=== PATIENT | male | born 1950 | race Caucasian/White ===

== ENCOUNTER → 2017-02-12 | Outpatient (CLI) | payer OTHER | END | disposition home or self-care (01) | LOC: LAB 16:40 | PROVIDERS: ATTEND Internal Medicine | DX: N41.9 Inflammatory disease of prostate, unspecified (principal) | CPT/HCPCS: 87086 ==

== ENCOUNTER → 2017-05-11 | Outpatient (CLI) | payer OTHER ==
[~2017-05-11] MED LIST: ALLO300T2 PO; ASCO500T11 PO; ASPI81TA27 PO; ATOR20TA PO; CALC500T30 PO; CANA100T PO; CARV12.544 PO; CLON05T PO; CYA100I PO; INSLISPI SC; LACTCAP35 OR; LOSA25TA9 PO; METF-370 PO; SERT-160 PO; SITA100T7 PO; TRAZ50TA2 PO; WARF7.5T7 PO; ZALE10CA44 PO; [UNRECOGNIZED DRUG - CODE] EACHEYE
[2017-05-11 16:22] LABS: Basophils # (auto) 0.1 uL; Basophils % (auto) 1.1 % (0.0-2.0); Eosinophils # (auto) 0.3 uL; Eosinophils % (auto) 5.1 % (0.0-7.0); Hematocrit 47.1 % (41.0-53.0); Hemoglobin 15.6 g/dL (13.5-17.5); Lymphocytes # (auto) 0.8 uL; Lymphocytes % (auto) 11.7 % (10.0-50.0); Mean Corpuscular Hemoglobin 31.1 pg (28.0-32.0); Mean Corpuscular Hgb Conc. 33.1 g/dL (32.0-36.0); Monocytes # (auto) 0.7 uL; Monocytes % (auto) 10.3 % (0.0-12.0); Neutrophils # (auto) 4.8 uL; Neutrophils % (auto) 71.8 % (37.0-80.0); Nucleated Red Blood Cells % 0.1 %; Platelet Count (auto) 226 10^3/uL (140-450); Red Blood Cells 5.01 10^6/uL (4.5-5.90); Red Cell Distribution Width 17.4 % (11.8-14.3); White Blood Cell 6.7 10^3/uL (4.4-10.8)
[2017-05-11 16:35] LABS: Albumin 3.9 g/dL (3.4-5.0); BUN/Creatinine Ratio 22.7; Calcium 9.5 mg/dL (8.5-10.1); Potassium 4.1 mmol/L (3.5-5.1)
[2017-05-11 16:38] LABS: Bilirubin, Total 0.3 mg/dL (0.2-1.0); Total Protein 8.2 g/dL (6.4-8.2)
[2017-05-11 16:50] LABS: INR 2.36 (0.9-1.15); Partial Thromboplastin Time 41.8 sec (22.64-33.71)
[2017-05-11 16:58] LABS: Free T4 (Free Thyroxine) 0.97 ng/dL (0.89-1.76)
== END | disposition home or self-care (01) ==
LOC: LAB 16:00
PROVIDERS: ATTEND Internal Medicine
DX: I10 Essential (primary) hypertension (principal); E11.9 Type 2 diabetes mellitus without complications
CPT/HCPCS: 36415; 80053; 82043; 82607; 83036; 84439; 84443; 85025; 85610; 85652; 85730

== ENCOUNTER → 2017-06-29 | Outpatient (CLI) | payer OTHER ==
[2017-06-29 11:34] LABS: Urine WBC None Seen /hpf (0 - 3)
[2017-06-29 11:40] LABS: Basophils # (auto) 0.1 uL; Eosinophils # (auto) 0.4 uL; Eosinophils % (auto) 5.7 % (0.0-7.0); Hematocrit 49.2 % (41.0-53.0); Hemoglobin 16.1 g/dL (13.5-17.5); Lymphocytes # (auto) 0.8 uL; Lymphocytes % (auto) 11.3 % (10.0-50.0); Mean Corpuscular Hemoglobin 30.8 pg (28.0-32.0); Mean Corpuscular Hgb Conc. 32.7 g/dL (32.0-36.0); Mean Corpuscular Volume 94.3 fL (80.0-100.0); Monocytes # (auto) 0.6 uL; Monocytes % (auto) 9.7 % (0.0-12.0); Neutrophils # (auto) 4.8 uL; Neutrophils % (auto) 72.3 % (37.0-80.0); Nucleated Red Blood Cells % 0.3 %; Platelet Count (auto) 187 10^3/uL (140-450); Red Blood Cells 5.22 10^6/uL (4.5-5.90); Red Cell Distribution Width 16.6 % (11.8-14.3); White Blood Cell 6.6 10^3/uL (4.4-10.8)
[2017-06-29 11:56] LABS: INR 2.6 (0.9-1.15); Partial Thromboplastin Time 43.6 sec (22.64-33.71); Prothrombin Time 28.6 sec (9.37-12.3)
[2017-06-29 12:01] LABS: BUN/Creatinine Ratio 18.2; Calcium 9.5 mg/dL (8.5-10.1); Potassium 4.8 mmol/L (3.5-5.1)
[2017-06-29 12:45] LABS: Urine Bacteria NONE SEEN /hpf (None Seen); Urine Blood Negative /uL (Negative); Urine Specific Gravity 1.023 (1.001-1.035)
== END | disposition home or self-care (01) ==
LOC: LAB 10:45
PROVIDERS: ATTEND Urology
DX: I12.9 Hypertensive chronic kidney disease with stage 1 through stage 4 chronic kidney disease, or unspecified chronic kidney disease (principal); E11.22 Type 2 diabetes mellitus with diabetic chronic kidney disease; N18.4 Chronic kidney disease, stage 4 (severe); E78.5 Hyperlipidemia, unspecified; Z79.899 Other long term (current) drug therapy
CPT/HCPCS: 36415; 80048; 81001; 85025; 85610; 85730; 87086

== ENCOUNTER → 2017-12-14 | Outpatient (CLI) | payer OTHER ==
[2017-12-14 09:57] LABS: Basophils # (auto) 0 uL; Basophils % (auto) 0.7 % (0.0-2.0); Eosinophils # (auto) 0.3 uL; Eosinophils % (auto) 5.8 % (0.0-7.0); Hematocrit 48.4 % (41.0-53.0); Lymphocytes # (auto) 0.8 uL; Mean Corpuscular Hemoglobin 31.3 pg (28.0-32.0); Mean Corpuscular Volume 94.9 fL (80.0-100.0); Monocytes # (auto) 0.5 uL; Monocytes % (auto) 8.8 % (0.0-12.0); Neutrophils # (auto) 3.7 uL; Neutrophils % (auto) 69.7 % (37.0-80.0); Nucleated Red Blood Cells % 0.1 %; Platelet Count (auto) 177 10^3/uL (140-450); Red Blood Cells 5.11 10^6/uL (4.5-5.90); Red Cell Distribution Width 16.7 % (11.8-14.3); White Blood Cell 5.3 10^3/uL (4.4-10.8)
[2017-12-14 10:19] LABS: Albumin 3.7 g/dL (3.4-5.0); BUN/Creatinine Ratio 20.4; Bilirubin, Total 0.3 mg/dL (0.2-1.0); Calcium 9.1 mg/dL (8.5-10.1); Potassium 4.8 mmol/L (3.5-5.1); Total Protein 7.8 g/dL (6.4-8.2)
== END | disposition home or self-care (01) ==
LOC: LAB 09:14
PROVIDERS: ATTEND Internal Medicine
DX: E11.9 Type 2 diabetes mellitus without complications (principal); E78.00 Pure hypercholesterolemia, unspecified
CPT/HCPCS: 36415; 80053; 80061; 83036; 84439; 84443; 85025; 85652

== ENCOUNTER → 2018-06-20 | Outpatient (CLI) | payer OTHER ==
[~2018-06-20] MED LIST changes: +LOSA25TA40 PO; -LOSA25TA9 PO
[2018-06-20 09:20] LABS: Basophils # (auto) 0 uL; Basophils % (auto) 0.7 % (0.0-2.0); Eosinophils # (auto) 0.4 uL; Hematocrit 45.1 % (41.0-53.0); Hemoglobin 15.2 g/dL (13.5-17.5); Lymphocytes # (auto) 1.1 uL; Lymphocytes % (auto) 15.1 % (10.0-50.0); Mean Corpuscular Hemoglobin 32.1 pg (28.0-32.0); Mean Corpuscular Hgb Conc. 33.6 g/dL (32.0-36.0); Mean Corpuscular Volume 95.6 fL (80.0-100.0); Monocytes # (auto) 0.7 uL; Neutrophils # (auto) 4.9 uL; Neutrophils % (auto) 68.2 % (37.0-80.0); Platelet Count (auto) 210 10^3/uL (140-450); Red Blood Cells 4.72 10^6/uL (4.5-5.90); Red Cell Distribution Width 14.9 % (11.8-14.3); White Blood Cell 7.2 10^3/uL (4.4-10.8)
[2018-06-20 09:25] LABS: Potassium 4.6 mmol/L (3.5-5.1)
[2018-06-20 09:34] LABS: Albumin 3.7 g/dL (3.4-5.0); BUN/Creatinine Ratio 23.7; Bilirubin, Total 0.3 mg/dL (0.2-1.0); Total Protein 7.7 g/dL (6.4-8.2)
== END | disposition home or self-care (01) ==
LOC: LAB 08:40
PROVIDERS: ATTEND Internal Medicine
DX: E11.9 Type 2 diabetes mellitus without complications (principal)
CPT/HCPCS: 36415; 80053; 83036; 85025

== ENCOUNTER → 2018-09-25 | Outpatient (CLI) | payer OTHER, MEDICARE ==
[2018-09-25 13:40] LABS: Basophils # (auto) 0.1 uL; Basophils % (auto) 0.7 % (0.0-2.0); Eosinophils # (auto) 0.5 uL; Eosinophils % (auto) 6.3 % (0.0-7.0); Hematocrit 47.8 % (41.0-53.0); Hemoglobin 15.7 g/dL (13.5-17.5); Lymphocytes # (auto) 1.1 uL; Lymphocytes % (auto) 14.1 % (10.0-50.0); Mean Corpuscular Hgb Conc. 32.9 g/dL (32.0-36.0); Mean Corpuscular Volume 94.2 fL (80.0-100.0); Monocytes # (auto) 0.7 uL; Monocytes % (auto) 9.5 % (0.0-12.0); Neutrophils # (auto) 5.3 uL; Neutrophils % (auto) 69.4 % (37.0-80.0); Nucleated Red Blood Cells % 0.7 %; Platelet Count (auto) 214 10^3/uL (140-450); Red Blood Cells 5.07 10^6/uL (4.5-5.90); White Blood Cell 7.7 10^3/uL (4.4-10.8)
[2018-09-25 13:50] LABS: INR 1.69 (0.9-1.15); Prothrombin Time 17.8 sec (9.06-12.60)
[2018-09-25 14:01] LABS: Albumin 3.8 g/dL (3.4-5.0); BUN/Creatinine Ratio 24.2; Calcium 9.6 mg/dL (8.5-10.1); Potassium 5.1 mmol/L (3.5-5.1); Uric Acid 3.5 mg/dL (3.5-7.2)
[2018-09-25 14:04] LABS: Bilirubin, Total 0.4 mg/dL (0.2-1.0); Total Protein 8.1 g/dL (6.4-8.2)
[2018-09-25 15:48] LABS: Urine Bacteria NONE SEEN /hpf (None Seen); Urine Blood Negative /uL (Negative); Urine Mucus FEW (None Seen); Urine WBC <1 /hpf (0 - 3)
== END | disposition home or self-care (01) ==
LOC: LAB 12:46
PROVIDERS: ATTEND Internal Medicine
DX: Z01.818 Encounter for other preprocedural examination (principal); I12.9 Hypertensive chronic kidney disease with stage 1 through stage 4 chronic kidney disease, or unspecified chronic kidney disease; E11.22 Type 2 diabetes mellitus with diabetic chronic kidney disease; N18.4 Chronic kidney disease, stage 4 (severe)
CPT/HCPCS: 36415; 80053; 81001; 83036; 84550; 85025; 85610

== ENCOUNTER → 2018-10-28 | Outpatient (CLI) | payer MEDICARE, OTHER | END | disposition home or self-care (01) | LOC: XY 08:13 | PROVIDERS: ATTEND Internal Medicine | DX: R93.89 Abnormal findings on diagnostic imaging of other specified body structures (principal); Z85.118 Personal history of other malignant neoplasm of bronchus and lung | CPT/HCPCS: 78306; A9503 ==

== ENCOUNTER → 2019-01-20 | Outpatient (CLI) | payer OTHER, MEDICARE ==
[~2019-01-20] MED LIST changes: +ASPI-404 PO; -ASPI81TA27 PO; +CLON0.5T11 PO; -CLON05T PO; +LOSA25TA38 PO; -LOSA25TA40 PO
[2019-01-20 10:11] LABS: Urine WBC None Seen /hpf (0 - 3)
[2019-01-20 10:50] LABS: Basophils # (auto) 0.1 uL; Basophils % (auto) 0.8 % (0.0-2.0); Eosinophils # (auto) 0.4 uL; Eosinophils % (auto) 6.2 % (0.0-7.0); Hematocrit 44.1 % (41.0-53.0); Hemoglobin 14.6 g/dL (13.5-17.5); Lymphocytes # (auto) 0.8 uL; Lymphocytes % (auto) 12.8 % (10.0-50.0); Mean Corpuscular Hemoglobin 30.9 pg (28.0-32.0); Mean Corpuscular Volume 93.5 fL (80.0-100.0); Monocytes # (auto) 0.6 uL; Monocytes % (auto) 8.4 % (0.0-12.0); Neutrophils # (auto) 4.8 uL; Neutrophils % (auto) 71.8 % (37.0-80.0); Platelet Count (auto) 208 10^3/uL (140-450); Red Blood Cells 4.72 10^6/uL (4.5-5.90); Red Cell Distribution Width 15.7 % (11.8-14.3); White Blood Cell 6.6 10^3/uL (4.4-10.8)
[2019-01-20 11:02] LABS: Urine Bacteria NONE SEEN /hpf (None Seen); Urine Blood Negative /uL (Negative); Urine Specific Gravity 1.019 (1.001-1.035)
[2019-01-20 11:16] LABS: Potassium 4.6 mmol/L (3.5-5.1)
[2019-01-20 11:22] LABS: Free T4 (Free Thyroxine) 0.98 ng/dL (0.89-1.76)
[2019-01-20 11:26] LABS: Albumin 3.6 g/dL (3.4-5.0); BUN/Creatinine Ratio 20.2; Bilirubin, Total 0.4 mg/dL (0.2-1.0); Calcium 9.4 mg/dL (8.5-10.1); Total Protein 7.6 g/dL (6.4-8.2)
== END | disposition home or self-care (01) ==
LOC: LAB 09:48
PROVIDERS: ATTEND Internal Medicine
DX: E11.9 Type 2 diabetes mellitus without complications (principal); I10 Essential (primary) hypertension
CPT/HCPCS: 36415; 80053; 80061; 81001; 82043; 82607; 84439; 84443; 85025; 85652

== ENCOUNTER → 2019-02-17 | Outpatient (CLI) | payer MEDICARE, OTHER | END | disposition home or self-care (01) | LOC: LAB 10:53 | PROVIDERS: ATTEND Internal Medicine | DX: E11.9 Type 2 diabetes mellitus without complications (principal) | CPT/HCPCS: 36415; 83036 ==

== ENCOUNTER → 2019-05-12 | Outpatient (CLI) | payer OTHER ==
[~2019-05-12] MED LIST changes: -CLON0.5T11 PO; +CLON0.5T3 PO
== END | disposition home or self-care (01) ==
LOC: LAB 10:25
DX: R97.20 Elevated prostate specific antigen [PSA] (principal)
CPT/HCPCS: 84154

== ENCOUNTER → 2019-06-18 | Outpatient (CLI) | payer OTHER ==
[2019-06-18 10:39] LABS: Albumin 3.5 g/dL (3.4-5.0); Calcium 9.3 mg/dL (8.5-10.1); Potassium 5.1 mmol/L (3.5-5.1)
[2019-06-18 10:42] LABS: BUN/Creatinine Ratio 20.4; Bilirubin, Total 0.3 mg/dL (0.2-1.0); Total Protein 7.5 g/dL (6.4-8.2)
== END | disposition home or self-care (01) ==
LOC: LAB 09:35
PROVIDERS: ATTEND Internal Medicine
DX: E11.9 Type 2 diabetes mellitus without complications (principal); N52.9 Male erectile dysfunction, unspecified
CPT/HCPCS: 36415; 80053; 83036; 84146; 84403

== ENCOUNTER → 2019-10-16 | Outpatient (CLI) | payer OTHER ==
[2019-10-16 09:48] LABS: Basophils # (auto) 0.1 10 ^3/uL (0-0.2); Basophils % (auto) 0.9 % (0.0-2.0); Eosinophils # (auto) 0.3 10 ^3/uL (0-0.8); Eosinophils % (auto) 5.1 % (0.0-7.0); Hematocrit 44.3 % (41.0-53.0); Hemoglobin 14.3 g/dL (13.5-17.5); Lymphocytes # (auto) 1.1 10 ^3/uL (0.4-5.4); Lymphocytes % (auto) 16.6 % (10.0-50.0); Mean Corpuscular Hemoglobin 30.4 pg (28.0-32.0); Mean Corpuscular Hgb Conc. 32.3 g/dL (32.0-36.0); Mean Corpuscular Volume 93.9 fL (80.0-100.0); Monocytes # (auto) 0.7 10 ^3/uL (0-1.3); Monocytes % (auto) 10.7 % (0.0-12.0); Neutrophils # (auto) 4.4 10 ^3/uL (1.6-8.6); Neutrophils % (auto) 66.7 % (37.0-80.0); Platelet Count (auto) 226 10^3/uL (140-450); Red Blood Cells 4.72 10^6/uL (4.5-5.90); Red Cell Distribution Width 16.5 % (11.8-14.3); White Blood Cell 6.6 10^3/uL (4.4-10.8)
[2019-10-16 10:15] LABS: Potassium 4.6 mmol/L (3.5-5.1)
[2019-10-16 10:20] LABS: Albumin 3.5 g/dL (3.4-5.0); Calcium 9.1 mg/dL (8.5-10.1)
[2019-10-16 10:24] LABS: Bilirubin, Total 0.3 mg/dL (0.2-1.0); Total Protein 7.3 g/dL (6.4-8.2)
[2019-10-16 20:13] LABS: Uric Acid 3.5 mg/dL (3.5-7.2)
== END | disposition home or self-care (01) ==
LOC: LAB 09:18
PROVIDERS: ATTEND Internal Medicine
DX: E11.40 Type 2 diabetes mellitus with diabetic neuropathy, unspecified (principal); N40.0 Benign prostatic hyperplasia without lower urinary tract symptoms
CPT/HCPCS: 36415; 80053; 83036; 84550; 85025

== ENCOUNTER → 2020-01-12 | Outpatient (CLI) | payer OTHER ==
[~2020-01-12] MED LIST changes: -ASPI-404 PO; +ASPI-543 PO
[2020-01-12 10:24] LABS: Urine Bacteria FEW /hpf (None Seen); Urine Blood Negative /uL (Negative); Urine Mucus FEW (None Seen); Urine WBC <1 /hpf (0 - 3)
[2020-01-12 10:26] LABS: Basophils # (auto) 0.1 10 ^3/uL (0-0.2); Basophils % (auto) 0.9 % (0.0-2.0); Eosinophils # (auto) 0.3 10 ^3/uL (0-0.8); Eosinophils % (auto) 4.6 % (0.0-7.0); Hematocrit 41.4 % (41.0-53.0); Hemoglobin 13.6 g/dL (13.5-17.5); Lymphocytes # (auto) 0.8 10 ^3/uL (0.4-5.4); Mean Corpuscular Hemoglobin 30.8 pg (28.0-32.0); Mean Corpuscular Hgb Conc. 32.7 g/dL (32.0-36.0); Mean Corpuscular Volume 94.2 fL (80.0-100.0); Monocytes # (auto) 0.5 10 ^3/uL (0-1.3); Neutrophils # (auto) 4.1 10 ^3/uL (1.6-8.6); Neutrophils % (auto) 72.5 % (37.0-80.0); Nucleated Red Blood Cells % 0.1 %; Platelet Count (auto) 210 10^3/uL (140-450); Red Cell Distribution Width 15.6 % (11.8-14.3); White Blood Cell 5.7 10^3/uL (4.4-10.8)
[2020-01-12 10:43] LABS: Potassium 4.7 mmol/L (3.5-5.1)
[2020-01-12 10:53] LABS: Albumin 3.6 g/dL (3.4-5.0); BUN/Creatinine Ratio 17.4; Bilirubin, Total 0.4 mg/dL (0.2-1.0); Calcium 9.3 mg/dL (8.5-10.1); Total Protein 7.5 g/dL (6.4-8.2); Uric Acid 3.2 mg/dL (3.5-7.2)
[2020-01-12 15:35] LABS: Free T4 (Free Thyroxine) 1.02 ng/dL (0.89-1.76)
== END | disposition home or self-care (01) ==
LOC: LAB 09:42
PROVIDERS: ATTEND Internal Medicine
DX: E11.21 Type 2 diabetes mellitus with diabetic nephropathy (principal); E11.22 Type 2 diabetes mellitus with diabetic chronic kidney disease; N18.3 Chronic kidney disease, stage 3 (moderate); I26.99 Other pulmonary embolism without acute cor pulmonale; N40.0 Benign prostatic hyperplasia without lower urinary tract symptoms
CPT/HCPCS: 36415; 80053; 80061; 81001; 82043; 82607; 83036; 83970; 84153; 84439; 84443; 84550; 85025; 85652

== ENCOUNTER → 2020-03-08 | Outpatient (CLI) | payer OTHER | END | disposition home or self-care (01) | LOC: LAB 15:18 | PROVIDERS: ATTEND Internal Medicine | DX: Z12.11 Encounter for screening for malignant neoplasm of colon (principal) | CPT/HCPCS: 82274 ==

== ENCOUNTER → 2020-03-15 | Outpatient (CLI) | payer OTHER | END | disposition home or self-care (01) | LOC: XY 15:01 | PROVIDERS: ATTEND Internal Medicine | DX: L97.909 Non-pressure chronic ulcer of unspecified part of unspecified lower leg with unspecified severity (principal) | CPT/HCPCS: 93925 ==

== ENCOUNTER → 2020-07-21 | Day surgery (SDC) | payer OTHER ==
[2020-07-16 14:58] LABS: Basophils # (auto) 0.1 10 ^3/uL (0-0.2); Eosinophils # (auto) 0.4 10 ^3/uL (0-0.8); Eosinophils % (auto) 5.7 % (0.0-7.0); Hematocrit 43.2 % (41.0-53.0); Hemoglobin 14.4 g/dL (13.5-17.5); Lymphocytes % (auto) 15.4 % (10.0-50.0); Mean Corpuscular Hemoglobin 31.8 pg (28.0-32.0); Mean Corpuscular Hgb Conc. 33.3 g/dL (32.0-36.0); Mean Corpuscular Volume 95.5 fL (80.0-100.0); Monocytes # (auto) 0.7 10 ^3/uL (0-1.3); Neutrophils # (auto) 4.6 10 ^3/uL (1.6-8.6); Neutrophils % (auto) 67.9 % (37.0-80.0); Nucleated Red Blood Cells % 0.1 %; Platelet Count (auto) 214 10^3/uL (140-450); Red Blood Cells 4.53 10^6/uL (4.5-5.90); Red Cell Distribution Width 15.3 % (11.8-14.3); White Blood Cell 6.7 10^3/uL (4.4-10.8)
[2020-07-16 15:27] LABS: INR 2.22 (0.9-1.15); Partial Thromboplastin Time 38.9 sec (23.0-31.2)
[~2020-07-21] VITALS: Ht 177.8 cm; Wt 104.3 kg
[~2020-07-21] MED LIST changes: -ALLO300T2 PO; -ASPI-543 PO; -ATOR20TA PO; +CALC-440 PO; -CALC500T30 PO; -CANA100T PO; +CHOL1CAP PO; +CILO50TA PO; -CYA100I PO; +FIBETAB PO; +GLIP10TA9 PO; +INSLANTI SC; +MULT-223 PO; -TRAZ50TA2 PO; +WARF7.5T20 PO; -WARF7.5T7 PO; -[UNRECOGNIZED DRUG - CODE] EACHEYE; +[UNRECOGNIZED DRUG - CODE] LEFTEYE
[2020-07-21] MEDS: MIDAZOLAM HCL 5 MG/ML-1ML VIAL ONE ×4 (14:07→14:27)
[2020-07-21] MEDS: fentaNYL CITRATE 100 MCG/2 ML VL ONE ×3 (14:07→14:15)
[2020-07-21] MEDS: diphenhdrAMINE HCL 50 MG/1 ML VL ONE ×2 (14:07→14:27)
[2020-07-21 15:10] VITALS: BP 154/84
== END | disposition home or self-care (01) ==
LOC: GI 12:13
PROVIDERS: ATTEND Internal Medicine Gastroenterology
DX: R19.5 Other fecal abnormalities (principal); D12.3 Benign neoplasm of transverse colon; D12.4 Benign neoplasm of descending colon; K63.89 Other specified diseases of intestine; I10 Essential (primary) hypertension; E11.36 Type 2 diabetes mellitus with diabetic cataract; I26.99 Other pulmonary embolism without acute cor pulmonale; E66.9 Obesity, unspecified; M79.89 Other specified soft tissue disorders; F32.9 Major depressive disorder, single episode, unspecified; F41.9 Anxiety disorder, unspecified; F99 Mental disorder, not otherwise specified; Z80.42 Family history of malignant neoplasm of prostate; Z86.010 Personal history of colon polyps; Z20.822 Contact with and (suspected) exposure to COVID-19; Z98.890 Other specified postprocedural states; Z86.718 Personal history of other venous thrombosis and embolism; Z68.33 Body mass index [BMI] 33.0-33.9, adult
CPT/HCPCS: 36415; 45385; 82962; 85025; 85610; 85730; 88305; J1200; J2250; J3010; J7030; U0003; 99153; G0500

== ENCOUNTER → 2020-10-08 | Outpatient (CLI) | payer OTHER ==
[2020-10-08 08:39] LABS: BUN/Creatinine Ratio 22.9; Calcium 9.4 mg/dL (8.5-10.1); Potassium 4.3 mmol/L (3.5-5.1); Uric Acid 3.3 mg/dL (3.5-7.2)
== END | disposition home or self-care (01) ==
LOC: LAB 08:07
PROVIDERS: ATTEND Internal Medicine
DX: E11.9 Type 2 diabetes mellitus without complications (principal)
CPT/HCPCS: 36415; 80048; 83036; 84550

== ENCOUNTER → 2021-02-16 | Outpatient (CLI) | payer OTHER | END | disposition home or self-care (01) | LOC: LAB 09:49 | PROVIDERS: ATTEND Internal Medicine | DX: E11.9 Type 2 diabetes mellitus without complications (principal); I10 Essential (primary) hypertension | CPT/HCPCS: 36415; 83036; 84153; 84478 ==

== ENCOUNTER → 2021-03-02 | Day surgery (SDC) | payer OTHER ==
[2021-02-25 13:52] LABS: Basophils # (auto) 0.1 10 ^3/uL (0-0.2); Basophils % (auto) 0.9 % (0.0-2.0); Eosinophils # (auto) 0.4 10 ^3/uL (0-0.8); Eosinophils % (auto) 7.1 % (0.0-7.0); Hematocrit 43.8 % (41.0-53.0); Hemoglobin 14.1 g/dL (13.5-17.5); Lymphocytes # (auto) 0.8 10 ^3/uL (0.4-5.4); Lymphocytes % (auto) 13.1 % (10.0-50.0); Mean Corpuscular Hemoglobin 30.9 pg (28.0-32.0); Mean Corpuscular Hgb Conc. 32.1 g/dL (32.0-36.0); Mean Corpuscular Volume 96.1 fL (80.0-100.0); Monocytes # (auto) 0.6 10 ^3/uL (0-1.3); Monocytes % (auto) 10.4 % (0.0-12.0); Neutrophils # (auto) 4.1 10 ^3/uL (1.6-8.6); Neutrophils % (auto) 68.5 % (37.0-80.0); Nucleated Red Blood Cells % 0.1 %; Red Blood Cells 4.56 10^6/uL (4.5-5.90); Red Cell Distribution Width 15.9 % (11.8-14.3)
[2021-02-25 14:43] LABS: Albumin 3.7 g/dL (3.4-5.0); Calcium 9.1 mg/dL (8.5-10.1); Potassium 4.6 mmol/L (3.5-5.1)
[2021-02-25 14:48] LABS: Bilirubin, Total 0.3 mg/dL (0.2-1.0); Total Protein 7.8 g/dL (6.4-8.2)
[~2021-03-02] VITALS: Ht 175.3 cm; Wt 104.3 kg
[~2021-03-02] MED LIST changes: -CHOL1CAP PO; -INSLANTI SC; -[UNRECOGNIZED DRUG - CODE] LEFTEYE
[2021-03-02 14:34] LABS: INR 1.22 (0.9-1.15); Partial Thromboplastin Time 29.4 sec (23.6-33.0)
[2021-03-02] MEDS: MIDAZOLAM HCL 5 MG/ML-1ML VIAL ONE ×3 (14:50→15:09)
[2021-03-02] MEDS: diphenhdrAMINE HCL 50 MG/1 ML VL ONE ×2 (14:50→14:54)
[2021-03-02] MEDS: fentaNYL CITRATE 100 MCG/2 ML VL ONE ×2 (14:50→14:54)
[2021-03-02 16:05] VITALS: BP 147/78
== END | disposition home or self-care (01) ==
LOC: GI 13:07
PROVIDERS: ATTEND Internal Medicine Gastroenterology
DX: R19.4 Change in bowel habit (principal); D12.3 Benign neoplasm of transverse colon; K63.89 Other specified diseases of intestine; F32.9 Major depressive disorder, single episode, unspecified; I10 Essential (primary) hypertension; E11.40 Type 2 diabetes mellitus with diabetic neuropathy, unspecified; I26.99 Other pulmonary embolism without acute cor pulmonale; F99 Mental disorder, not otherwise specified; F41.9 Anxiety disorder, unspecified; Z80.42 Family history of malignant neoplasm of prostate; Z98.890 Other specified postprocedural states; Z86.73 Personal history of transient ischemic attack (TIA), and cerebral infarction without residual deficits; Z79.899 Other long term (current) drug therapy; Z68.34 Body mass index [BMI] 34.0-34.9, adult; Z20.822 Contact with and (suspected) exposure to COVID-19
CPT/HCPCS: 36415; 45385; 80053; 82962; 85025; 85610; 85730; J1200; J2250; J3010; J7030; U0003; 99153; G0500

== ENCOUNTER → 2021-06-03 | Outpatient (CLI) | payer OTHER ==
[2021-06-03 11:50] LABS: Calcium 9.4 mg/dL (8.5-10.1); Potassium 4.5 mmol/L (3.5-5.1)
[2021-06-03 11:51] LABS: BUN/Creatinine Ratio 21.4
== END | disposition home or self-care (01) ==
LOC: LAB 10:43
PROVIDERS: ATTEND Specialist
DX: N40.1 Benign prostatic hyperplasia with lower urinary tract symptoms (principal)
CPT/HCPCS: 36415; 80048; 84154

== ENCOUNTER → 2021-11-01 | Outpatient (CLI) | payer OTHER ==
[2021-11-01 10:14] LABS: Potassium 4.5 mmol/L (3.5-5.1)
[2021-11-01 10:22] LABS: BUN/Creatinine Ratio 23.6; Calcium 9.1 mg/dL (8.5-10.1)
== END | disposition home or self-care (01) ==
LOC: LAB 09:27
PROVIDERS: ATTEND Specialist
DX: I10 Essential (primary) hypertension (principal)
CPT/HCPCS: 36415; 80048

== ENCOUNTER → 2021-11-10 | Outpatient (CLI) | payer OTHER ==
[2021-11-10 09:03] LABS: Basophils # (auto) 0 10 ^3/uL (0-0.2); Basophils % (auto) 0.7 % (0.0-2.0); Eosinophils # (auto) 0.4 10 ^3/uL (0-0.8); Eosinophils % (auto) 5.5 % (0.0-7.0); Hematocrit 40.3 % (41.0-53.0); Lymphocytes # (auto) 0.8 10 ^3/uL (0.4-5.4); Lymphocytes % (auto) 12.1 % (10.0-50.0); Mean Corpuscular Hemoglobin 30.2 pg (28.0-32.0); Mean Corpuscular Hgb Conc. 32.1 g/dL (32.0-36.0); Monocytes # (auto) 0.6 10 ^3/uL (0-1.3); Monocytes % (auto) 9.3 % (0.0-12.0); Neutrophils # (auto) 4.7 10 ^3/uL (1.6-8.6); Neutrophils % (auto) 72.4 % (37.0-80.0); Nucleated Red Blood Cells % 0.1 %; Red Blood Cells 4.29 10^6/uL (4.5-5.90); Red Cell Distribution Width 15.3 % (11.8-14.3); White Blood Cell 6.5 10^3/uL (4.4-10.8)
[2021-11-10 09:36] LABS: Albumin 3.5 g/dL (3.4-5.0); Calcium 9.1 mg/dL (8.5-10.1); Potassium 4.4 mmol/L (3.5-5.1)
[2021-11-10 09:43] LABS: BUN/Creatinine Ratio 18.8; Bilirubin, Direct 0.1 mg/dL (0-0.2); Bilirubin, Total 0.3 mg/dL (0.2-1.0); Total Protein 7.6 g/dL (6.4-8.2)
== END | disposition home or self-care (01) ==
LOC: LAB 08:47
PROVIDERS: ATTEND Specialist
DX: R94.5 Abnormal results of liver function studies (principal); D64.9 Anemia, unspecified; E78.5 Hyperlipidemia, unspecified; E11.8 Type 2 diabetes mellitus with unspecified complications; E03.9 Hypothyroidism, unspecified; I10 Essential (primary) hypertension
CPT/HCPCS: 36415; 80048; 80061; 80076; 83036; 84443; 85025

== ENCOUNTER → 2022-01-09 | Outpatient (CLI) | payer OTHER ==
[2022-01-09 16:43] LABS: Alanine Aminotransferase 31 U/L (16-61); Alkaline Phosphatase 66 U/L (45-117); Anion Gap 7 (5-15); Aspartate Aminotransferase 9 U/L (15-37); Blood Urea Nitrogen 40 mg/dL (7-18); Carbon Dioxide 25 mmol/L (21-32); Chloride 113 mmol/L (98-107); GFR African American 58 mL/min; GFR Non-African American 48 mL/min; Glucose 293 mg/dL (74-106); Potassium 5.1 mmol/L (3.5-5.1); Sodium 145 mmol/L (136-145)
[2022-01-09 16:44] LABS: Albumin 3.8 g/dL (3.4-5.0); Bilirubin, Direct < 0.1 mg/dL (0-0.2); Calcium 9.4 mg/dL (8.5-10.1)
[2022-01-09 16:45] LABS: Bilirubin, Total 0.2 mg/dL (0.2-1.0); Cholesterol 135 mg/dL (< 200); HDL Cholesterol 57 mg/dL (40-59); LDL Cholesterol 54 mg/dL (< 100); Triglycerides 156 mg/dL (< 150)
== END | disposition home or self-care (01) ==
LOC: LAB 09:21
PROVIDERS: ATTEND Specialist
DX: I10 Essential (primary) hypertension (principal); R94.5 Abnormal results of liver function studies; D64.9 Anemia, unspecified; E78.5 Hyperlipidemia, unspecified; E11.8 Type 2 diabetes mellitus with unspecified complications; E03.9 Hypothyroidism, unspecified
CPT/HCPCS: 36415; 80053; 80061; 80076; 83036; 84443

== ENCOUNTER 2022-02-06 14:04 | Emergency (ER) | payer OTHER ==
[~2022-02-06] VITALS: Ht 177.8 cm; Wt 102.6 kg
[2022-02-06] MEDS ORDERED: OMNIPAQUE ORAL SOLN 500ml 12mg/ml PO ONE (15:26)
[2022-02-06 16:03] LABS: Basophils # (auto) 0.1 10 ^3/uL (0-0.2); Basophils % (auto) 0.8 % (0.0-2.0); Eosinophils # (auto) 0.4 10 ^3/uL (0-0.8); Hematocrit 41.3 % (41.0-53.0); Hemoglobin 13.3 g/dL (13.5-17.5); Lymphocytes # (auto) 0.9 10 ^3/uL (0.4-5.4); Mean Corpuscular Hemoglobin 30.9 pg (28.0-32.0); Mean Corpuscular Hgb Conc. 32.3 g/dL (32.0-36.0); Mean Corpuscular Volume 95.8 fL (80.0-100.0); Monocytes # (auto) 0.6 10 ^3/uL (0-1.3); Monocytes % (auto) 9.7 % (0.0-12.0); Neutrophils # (auto) 4.6 10 ^3/uL (1.6-8.6); Neutrophils % (auto) 69.5 % (37.0-80.0); Nucleated Red Blood Cells % 0.1 %; Red Blood Cells 4.31 10^6/uL (4.5-5.90); White Blood Cell 6.6 10^3/uL (4.4-10.8)
[2022-02-06 16:24] LABS: Albumin 3.6 g/dL (3.4-5.0); BUN/Creatinine Ratio 21.3; Calcium 8.9 mg/dL (8.5-10.1); Potassium 4.5 mmol/L (3.5-5.1)
[2022-02-06 16:26] LABS: Lactic Acid w/Reflex 2.9 mmol/L (0.4-2.0)
[2022-02-06 16:27] LABS: Bilirubin, Total 0.2 mg/dL (0.2-1.0); Total Protein 7.5 g/dL (6.4-8.2)
[2022-02-06 19:20] VITALS: BP 156/84
== END 2022-02-06 19:24 | disposition home or self-care (01) ==
LOC: ER 14:04
DX: K42.9 Umbilical hernia without obstruction or gangrene (principal); I10 Essential (primary) hypertension; E11.9 Type 2 diabetes mellitus without complications; Z79.4 Long term (current) use of insulin; Z79.899 Other long term (current) drug therapy
CPT/HCPCS: 36415; 74176; 80053; 83605; 85025; 93005

== ENCOUNTER → 2022-07-24 | Outpatient (CLI) | payer OTHER ==
[2022-07-24 10:45] LABS: Basophils # (auto) 0.1 10 ^3/uL (0-0.2); Basophils % (auto) 1.2 % (0.0-2.0); Eosinophils # (auto) 0.3 10 ^3/uL (0-0.8); Eosinophils % (auto) 3.9 % (0.0-7.0); Hematocrit 33.6 % (41.0-53.0); Lymphocytes # (auto) 0.8 10 ^3/uL (0.4-5.4); Lymphocytes % (auto) 10.8 % (10.0-50.0); Mean Corpuscular Hemoglobin 31.4 pg (28.0-32.0); Mean Corpuscular Hgb Conc. 32.7 g/dL (32.0-36.0); Mean Corpuscular Volume 96.1 fL (80.0-100.0); Monocytes # (auto) 0.6 10 ^3/uL (0-1.3); Monocytes % (auto) 7.9 % (0.0-12.0); Neutrophils # (auto) 5.8 10 ^3/uL (1.6-8.6); Neutrophils % (auto) 76.2 % (37.0-80.0); Nucleated Red Blood Cells % 0.1 %; Red Cell Distribution Width 15.9 % (11.8-14.3); White Blood Cell 7.6 10^3/uL (4.4-10.8)
[2022-07-24 11:54] LABS: BUN/Creatinine Ratio 18.5 (10.0-20.0); Calcium 9.1 mg/dL (8.5-10.1); Potassium 4.7 mmol/L (3.5-5.1)
== END | disposition home or self-care (01) ==
LOC: LAB 10:24
PROVIDERS: ATTEND Internal Medicine
DX: I13.0 Hypertensive heart and chronic kidney disease with heart failure and stage 1 through stage 4 chronic kidney disease, or unspecified chronic kidney disease (principal); I50.9 Heart failure, unspecified; N18.31 Chronic kidney disease, stage 3a
CPT/HCPCS: 36415; 80048; 83880; 85025

== ENCOUNTER → 2022-08-15 | Outpatient (CLI) | payer OTHER | END | disposition home or self-care (01) | LOC: LAB 12:48 | PROVIDERS: ATTEND Internal Medicine | DX: N20.0 Calculus of kidney (principal) | CPT/HCPCS: 84300; 84560 ==

== ENCOUNTER → 2022-08-22 | Outpatient (CLI) | payer OTHER | END | disposition home or self-care (01) | LOC: LAB 10:26 | PROVIDERS: ATTEND Internal Medicine | DX: N20.0 Calculus of kidney (principal) | CPT/HCPCS: 82507 ==

== ENCOUNTER 2023-02-20 20:02 | Inpatient (IN) | payer OTHER ==
[~2023-02-20] VITALS: Ht 177.8 cm; Wt 101.6 kg
[~2023-02-20 20:02] MED LIST changes: +LOSA25TA15 PO; -LOSA25TA38 PO; +WARF-114 PO; -WARF7.5T20 PO
[2023-02-20 21:30] VITALS: BP 161/85; PULSE 83; RESP 13; TEMP 98.4; O2SAT 96
[2023-02-20 22:00] VITALS: BP_SYST 161; BP_SYST 173; BP_DIAS 101; BP_DIAS 85; PULSE 83; PULSE 85; RESP 12; RESP 13; TEMP 98.4; O2SAT 96; O2SAT 98
[2023-02-20] MEDS ORDERED: ONDANSETRON HCL 4 MG/2 ML VIAL IV PRN (22:45)
[2023-02-20] MEDS ORDERED: DOCUSATE SOD 100 MG CAP PO PRN (22:45)
[2023-02-20] MEDS ORDERED: NITROGLYCERIN 0.4 MG SL TAB SL PRN (22:45)
[2023-02-20] MEDS ORDERED: DEXTROSE (50%) 50ML SYRG IV PRN (22:45)
[2023-02-20] MEDS ORDERED: MORPHINE SULFATE INJ 2 MG/ml SYRG IV PRN (22:45)
[2023-02-20] MEDS ORDERED: ACETAMINOPHEN 325 MG TAB PO PRN (22:45)
[2023-02-20 23:00] VITALS: BP 146/70; PULSE 87; RESP 14; O2SAT 95
[2023-02-20] MEDS ORDERED: HEPARIN DRIP/D5W 100UNITS/ML 250 ML IV SCH (23:00)
[2023-02-20] MEDS ORDERED: ATOR20TA PO (23:02)
[2023-02-20] MEDS ORDERED: ALLO300T2 PO (23:02)
[2023-02-20] MEDS ORDERED: GABA-1308 PO (23:04)
[2023-02-20] MEDS ORDERED: LOSA50TA46 PO (23:11)
[2023-02-20] MEDS ORDERED: LEVEMIR SC (23:18)
[2023-02-20] MEDS ORDERED: CLOP75TA28 PO (23:18)
[2023-02-20] MEDS ORDERED: MULT-775 OR (23:18)
[2023-02-20] MEDS ORDERED: FURO1TAB33 PO (23:18)
[2023-02-20] MEDS ORDERED: WARF4TAB70 PO ×2 (23:18)
[2023-02-20] MEDS ORDERED: INSU100I28 SC (23:18)
[2023-02-20 23:25] LABS: Basophils # (auto) 0 10 ^3/uL (0-0.2); Basophils % (auto) 0.2 % (0.0-2.0); Eosinophils # (auto) 0 10 ^3/uL (0-0.8); Eosinophils % (auto) 0.1 % (0.0-7.0); Hematocrit 43.1 % (41.0-53.0); Lymphocytes # (auto) 0.4 10 ^3/uL (0.4-5.4); Lymphocytes % (auto) 5.3 % (10.0-50.0); Mean Corpuscular Hemoglobin 31.9 pg (28.0-32.0); Mean Corpuscular Hgb Conc. 32.5 g/dL (32.0-36.0); Mean Corpuscular Volume 98.2 fL (80.0-100.0); Monocytes # (auto) 0.1 10 ^3/uL (0-1.3); Monocytes % (auto) 1.8 % (0.0-12.0); Neutrophils # (auto) 7.3 10 ^3/uL (1.6-8.6); Neutrophils % (auto) 92.6 % (37.0-80.0); Nucleated Red Blood Cells % 0.1 %; Red Blood Cells 4.39 10^6/uL (4.5-5.90); Red Cell Distribution Width 17.2 % (11.8-14.3); White Blood Cell 7.9 10^3/uL (4.4-10.8)
[2023-02-20 23:55] VITALS: PULSE 87
[2023-02-21] VITALS (23 sets, daily range): BP systolic 112–158; BP diastolic 56–83; PULSE 63–88; RESP 10–20; TEMP 97.5–98.6; O2SAT 94–99
[2023-02-21 02:53] LABS: INR 1.14 (0.9-1.15); Prothrombin Time 11.9 sec (9.3-11.8)
[2023-02-21 03:52] LABS: Rapid Influenza A Negative (Negative); Rapid Influenza B Negative (Negative)
[2023-02-21 03:53] LABS: COVID19 ANTIGEN SOFIA FIA NEGATIVE (NEGATIVE)
[2023-02-21] MEDS: HEPARIN DRIP/D5W 100UNITS/ML 250 ML IV SCH ×2 (04:02→14:26)
[2023-02-21 05:00] LABS: Basophils # (auto) 0 10 ^3/uL (0-0.2); Basophils % (auto) 0.1 % (0.0-2.0); Eosinophils # (auto) 0 10 ^3/uL (0-0.8); Hematocrit 41.1 % (41.0-53.0); Lymphocytes # (auto) 0.6 10 ^3/uL (0.4-5.4); Lymphocytes % (auto) 5.3 % (10.0-50.0); Mean Corpuscular Hemoglobin 31.3 pg (28.0-32.0); Mean Corpuscular Hgb Conc. 31.7 g/dL (32.0-36.0); Mean Corpuscular Volume 98.6 fL (80.0-100.0); Monocytes # (auto) 0.6 10 ^3/uL (0-1.3); Neutrophils # (auto) 10.4 10 ^3/uL (1.6-8.6); Neutrophils % (auto) 89.6 % (37.0-80.0); Red Blood Cells 4.16 10^6/uL (4.5-5.90); Red Cell Distribution Width 17.4 % (11.8-14.3); White Blood Cell 11.6 10^3/uL (4.4-10.8)
[2023-02-21 05:42] LABS: Alanine Aminotransferase 23 U/L (7-40); Albumin 3.9 g/dL (3.2-4.8); Alkaline Phosphatase 103 U/L (46-116); Anion Gap 12 (5-15); Aspartate Aminotransferase < 8 U/L (13-40); Bilirubin, Total 0.5 mg/dL (0.2-1.0); Blood Urea Nitrogen 44 mg/dL (9-23); Calcium 8.8 mg/dL (8.7-10.4); Carbon Dioxide 19 mmol/L (20-30); Chloride 108 mmol/L (98-107); Potassium 4.9 mmol/L (3.5-5.1); Sodium 139 mmol/L (136-145); Total Protein 6.5 g/dL (5.7-8.2)
[2023-02-21 06:20] LABS: Glucose 508 mg/dL (74-106)
[2023-02-21] MEDS ORDERED: FUROSEMIDE 40 MG/4 ML VIAL IV ONE (06:30)
[2023-02-21] MEDS ORDERED: InsuLIN REG 1unit/0.01ml Soln (100units/ml) SC SCH ×2 (07:00→12:00)
[2023-02-21] MEDS ORDERED: ACCU-CHEK COMFORT CURVE STRIP VI SCH (07:00)
[2023-02-21] MEDS ORDERED: DEXTROSE (50%) 50ML SYRG IV PRN ×2 (07:30→11:45)
[2023-02-21] MEDS: PANTOPRAZOLE 40 MG/10 ML VIAL INJ IV SCH (09:26)
[2023-02-21] MEDS: FUROSEMIDE 20 MG TAB PO SCH (09:28)
[2023-02-21] MEDS: CLOPIDOGREL BISULFATE 75 MG TAB PO SCH (09:28)
[2023-02-21] MEDS: CARVEDILOL 12.5 MG TAB PO SCH ×2 (09:28→22:07)
[2023-02-21] MEDS: ATORVASTATIN 20 MG TAB PO SCH (09:29)
[2023-02-21] MEDS: LOSARTAN POTASSIUM 50 MG TAB PO SCH (09:29)
[2023-02-21] MEDS: SERTRALINE HCL 50 MG TAB PO SCH (09:30)
[2023-02-21] MEDS ORDERED: INSULIN DETEMIR 25 UNIT SC SCH (10:00)
[2023-02-21] MEDS: ALLOPURINOL 300 MG TAB PO SCH (10:04)
[2023-02-21 10:37] LABS: INR 1.1 (0.9-1.15); Partial Thromboplastin Time 60.1 SEC (24.5-34.5); Prothrombin Time 11.5 sec (9.3-11.8)
[2023-02-21] MEDS: ACCU-CHEK COMFORT CURVE STRIP VI SCH ×4 (11:04→20:00)
[2023-02-21] MEDS: InsuLIN REG 1unit/0.01ml Soln (100units/ml) SC SCH ×3 (11:07→16:32)
[2023-02-21] MEDS ORDERED: INSULIN LANTUS (GLARGINE) 1 /0.01ml (100units/ml) SC ONE (13:15)
[2023-02-21] MEDS ORDERED: InsuLIN REG 1unit/0.01ml Soln (100units/ml) SC ONE (13:15)
[2023-02-21 16:13] LABS: INR 1.12 (0.9-1.15); Partial Thromboplastin Time 51.7 SEC (24.5-34.5); Prothrombin Time 11.7 sec (9.3-11.8)
[2023-02-21] MEDS ORDERED: CILOSTAZOL 50 MG PO SCH (17:00)
[2023-02-21] MEDS ORDERED: WARFARIN SODIUM 2.5 MG TAB PO ONE (17:00)
[2023-02-21] MEDS: GABAPENTIN 100 MG CAP PO SCH ×2 (17:51→17:54)
[2023-02-21] MEDS ORDERED: PATIENTS OWN MEDICATION (Sitagliptin Phosphate (Januvia) 1 TAB) PO SCH (18:00)
[2023-02-21] MEDS ORDERED: FUROSEMIDE 20 MG/2 ML VIAL IV ONE (18:30)
[2023-02-21 18:34] LABS: Urine WBC None Seen /hpf (0 - 3)
[2023-02-21 19:03] LABS: Urine Bacteria NONE SEEN /hpf (None Seen); Urine Blood Negative /uL (Negative); Urine Clarity Clear (Clear); Urine Color Colorless (Yellow); Urine Protein, UAD Negative (Negative); Urine Specific Gravity 1.011 (1.001-1.035); Urine Urobilinogen Normal (Negative)
[2023-02-21] MEDS ORDERED: INSULIN LANTUS (GLARGINE) 1 /0.01ml (100units/ml) SC SCH (22:00)
[2023-02-21] MEDS: INSULIN LANTUS (GLARGINE) 1 /0.01ml (100units/ml) SC SCH (22:08)
[2023-02-21] MEDS ORDERED: TEMAZEPAM 15 MG CAP PO ONE (22:30)
[2023-02-21 23:10] LABS: INR 1.09 (0.9-1.15); Partial Thromboplastin Time 53.9 SEC (24.5-34.5); Prothrombin Time 11.4 sec (9.3-11.8)
[2023-02-22] VITALS (14 sets, daily range): BP systolic 84–144; BP diastolic 49–80; PULSE 53–73; RESP 11–17; TEMP 96.4–98; O2SAT 90–99
[2023-02-22] MEDS: InsuLIN REG 1unit/0.01ml Soln (100units/ml) SC SCH ×4 (00:33→17:39)
[2023-02-22] MEDS: ACCU-CHEK COMFORT CURVE STRIP VI SCH ×4 (00:34→17:31)
[2023-02-22 05:47] LABS: Basophils # (auto) 0.1 10 ^3/uL (0-0.2); Basophils % (auto) 1.1 % (0.0-2.0); Eosinophils # (auto) 0.3 10 ^3/uL (0-0.8); Eosinophils % (auto) 3.2 % (0.0-7.0); Hematocrit 37.5 % (41.0-53.0); Hemoglobin 12.5 g/dL (13.5-17.5); Lymphocytes # (auto) 1.5 10 ^3/uL (0.4-5.4); Lymphocytes % (auto) 16.5 % (10.0-50.0); Mean Corpuscular Hemoglobin 32.2 pg (28.0-32.0); Mean Corpuscular Hgb Conc. 33.4 g/dL (32.0-36.0); Mean Corpuscular Volume 96.6 fL (80.0-100.0); Monocytes # (auto) 0.9 10 ^3/uL (0-1.3); Monocytes % (auto) 9.9 % (0.0-12.0); Neutrophils # (auto) 6.3 10 ^3/uL (1.6-8.6); Neutrophils % (auto) 69.3 % (37.0-80.0); Nucleated Red Blood Cells % 0.3 %; Red Blood Cells 3.88 10^6/uL (4.5-5.90); Red Cell Distribution Width 16.6 % (11.8-14.3)
[2023-02-22 05:48] LABS: INR 1.1 (0.9-1.15); Prothrombin Time 11.5 sec (9.3-11.8)
[2023-02-22 05:53] LABS: Alanine Aminotransferase 16 U/L (7-40); Alkaline Phosphatase 93 U/L (46-116); Anion Gap 9 (5-15); Aspartate Aminotransferase < 8 U/L (13-40); BUN/Creatinine Ratio 19.4 (10.0-20.0); Bilirubin, Total 0.4 mg/dL (0.2-1.0); Blood Urea Nitrogen 38 mg/dL (9-23); Calcium 9.1 mg/dL (8.7-10.4); Carbon Dioxide 24 mmol/L (20-30); Chloride 105 mmol/L (98-107); Potassium 4.1 mmol/L (3.5-5.1); Sodium 138 mmol/L (136-145); Total Protein 6.9 g/dL (5.7-8.2)
[2023-02-22] MEDS ORDERED: ACCU-CHEK COMFORT CURVE STRIP VI SCH (06:00)
[2023-02-22 06:06] LABS: Partial Thromboplastin Time 89.1 SEC (24.5-34.5)
[2023-02-22 06:29] LABS: Glucose 334 mg/dL (74-106)
[2023-02-22] MEDS: CLOPIDOGREL BISULFATE 75 MG TAB PO SCH (08:28)
[2023-02-22] MEDS: INSULIN LANTUS (GLARGINE) 1 /0.01ml (100units/ml) SC SCH ×2 (08:29→22:24)
[2023-02-22] MEDS: PANTOPRAZOLE 40 MG/10 ML VIAL INJ IV SCH (08:34)
[2023-02-22] MEDS: ATORVASTATIN 20 MG TAB PO SCH (08:35)
[2023-02-22] MEDS: SERTRALINE HCL 50 MG TAB PO SCH (08:35)
[2023-02-22] MEDS: FUROSEMIDE 20 MG TAB PO SCH (08:36)
[2023-02-22] MEDS: LOSARTAN POTASSIUM 50 MG TAB PO SCH (08:37)
[2023-02-22] MEDS: CARVEDILOL 12.5 MG TAB PO SCH ×2 (08:43→22:21)
[2023-02-22] MEDS: ALLOPURINOL 300 MG TAB PO SCH (08:44)
[2023-02-22 12:23] LABS: INR 1.11 (0.9-1.15); Partial Thromboplastin Time 63.1 SEC (24.5-34.5); Prothrombin Time 11.6 sec (9.3-11.8)
[2023-02-22] MEDS ORDERED: WARFARIN SODIUM 10 MG TAB PO ONE (17:00)
[2023-02-22] MEDS: GABAPENTIN 100 MG CAP PO SCH (17:31)
[2023-02-22 18:18] LABS: INR 1.1 (0.9-1.15); Partial Thromboplastin Time 50.5 SEC (24.5-34.5); Prothrombin Time 11.5 sec (9.3-11.8)
[2023-02-22] MEDS ORDERED: TEMAZEPAM 15 MG CAP PO PRN (22:00)
[2023-02-23] VITALS (10 sets, daily range): BP systolic 101–142; BP diastolic 60–75; PULSE 57–80; RESP 11–17; TEMP 97.7–98.2; O2SAT 90–100
[2023-02-23 00:17] LABS: INR 1.12 (0.9-1.15); Partial Thromboplastin Time 60.6 SEC (24.5-34.5); Prothrombin Time 11.7 sec (9.3-11.8)
[2023-02-23] MEDS: ACCU-CHEK COMFORT CURVE STRIP VI SCH ×5 (00:21→23:45)
[2023-02-23] MEDS: InsuLIN REG 1unit/0.01ml Soln (100units/ml) SC SCH ×5 (00:28→23:45)
[2023-02-23] MEDS: HEPARIN DRIP/D5W 100UNITS/ML 250 ML IV SCH ×2 (00:28→11:39)
[2023-02-23 05:23] LABS: Basophils # (auto) 0 10 ^3/uL (0-0.2); Basophils % (auto) 0.6 % (0.0-2.0); Eosinophils # (auto) 0.4 10 ^3/uL (0-0.8); Eosinophils % (auto) 4.6 % (0.0-7.0); Hematocrit 38.2 % (41.0-53.0); Hemoglobin 12.5 g/dL (13.5-17.5); Lymphocytes # (auto) 1.2 10 ^3/uL (0.4-5.4); Lymphocytes % (auto) 15.2 % (10.0-50.0); Mean Corpuscular Hemoglobin 31.8 pg (28.0-32.0); Mean Corpuscular Hgb Conc. 32.8 g/dL (32.0-36.0); Mean Corpuscular Volume 97.1 fL (80.0-100.0); Monocytes # (auto) 0.8 10 ^3/uL (0-1.3); Monocytes % (auto) 11.1 % (0.0-12.0); Neutrophils # (auto) 5.2 10 ^3/uL (1.6-8.6); Neutrophils % (auto) 68.5 % (37.0-80.0); Red Blood Cells 3.93 10^6/uL (4.5-5.90); Red Cell Distribution Width 16.2 % (11.8-14.3); White Blood Cell 7.6 10^3/uL (4.4-10.8)
[2023-02-23 05:31] LABS: Alanine Aminotransferase 19 U/L (7-40); Alkaline Phosphatase 95 U/L (46-116); Anion Gap 7 (5-15); Aspartate Aminotransferase < 8 U/L (13-40); Blood Urea Nitrogen 34 mg/dL (9-23); Calcium 9.1 mg/dL (8.7-10.4); Carbon Dioxide 25 mmol/L (20-30); Chloride 107 mmol/L (98-107); Glucose 286 mg/dL (74-106); Potassium 3.8 mmol/L (3.5-5.1); Sodium 139 mmol/L (136-145)
[2023-02-23 05:32] LABS: Total Protein 6.8 g/dL (5.7-8.2)
[2023-02-23 05:33] LABS: Bilirubin, Total 0.4 mg/dL (0.2-1.0)
[2023-02-23] MEDS: INSULIN LANTUS (GLARGINE) 1 /0.01ml (100units/ml) SC SCH ×2 (08:19→22:56)
[2023-02-23] MEDS: PANTOPRAZOLE 40 MG/10 ML VIAL INJ IV SCH (08:20)
[2023-02-23] MEDS: ATORVASTATIN 20 MG TAB PO SCH ×2 (08:20→22:49)
[2023-02-23] MEDS: SERTRALINE HCL 50 MG TAB PO SCH (08:21)
[2023-02-23] MEDS: CARVEDILOL 12.5 MG TAB PO SCH ×2 (08:21→22:49)
[2023-02-23] MEDS: LOSARTAN POTASSIUM 50 MG TAB PO SCH (08:21)
[2023-02-23] MEDS: ALLOPURINOL 300 MG TAB PO SCH (08:31)
[2023-02-23] MEDS: CLOPIDOGREL BISULFATE 75 MG TAB PO SCH (08:31)
[2023-02-23 10:40] LABS: INR 1.21 (0.9-1.15); Prothrombin Time 12.5 sec (9.3-11.8)
[2023-02-23 11:29] LABS: Partial Thromboplastin Time 78.6 SEC (24.5-34.5)
[2023-02-23] MEDS ORDERED: WARFARIN SODIUM 2 MG TAB PO ONE (17:00)
[2023-02-23] MEDS: GABAPENTIN 100 MG CAP PO SCH (17:06)
[2023-02-23 18:55] LABS: INR 1.23 (0.9-1.15); Prothrombin Time 12.7 sec (9.3-11.8)
[2023-02-24] VITALS (7 sets, daily range): BP systolic 113–130; BP diastolic 63–72; PULSE 65–72; RESP 17–22; TEMP 97.6–98.1; O2SAT 94–98
[2023-02-24] MEDS: HEPARIN DRIP/D5W 100UNITS/ML 250 ML IV SCH (03:05)
[2023-02-24 04:49] LABS: INR 1.29 (0.9-1.15); Partial Thromboplastin Time 40.1 SEC (24.5-34.5); Prothrombin Time 13.3 sec (9.3-11.8)
[2023-02-24] MEDS: ACCU-CHEK COMFORT CURVE STRIP VI SCH ×3 (05:29→18:00)
[2023-02-24] MEDS: InsuLIN REG 1unit/0.01ml Soln (100units/ml) SC SCH ×3 (05:30→18:00)
[2023-02-24] MEDS ORDERED: PANTOPRAZOLE 40 MG TAB PO SCH (10:00)
[2023-02-24] MEDS: SERTRALINE HCL 50 MG TAB PO SCH (10:39)
[2023-02-24] MEDS: CLOPIDOGREL BISULFATE 75 MG TAB PO SCH (10:39)
[2023-02-24] MEDS: CARVEDILOL 12.5 MG TAB PO SCH (10:40)
[2023-02-24] MEDS: ATORVASTATIN 20 MG TAB PO SCH (10:41)
[2023-02-24] MEDS: LOSARTAN POTASSIUM 50 MG TAB PO SCH (10:41)
[2023-02-24] MEDS: ALLOPURINOL 300 MG TAB PO SCH (10:42)
[2023-02-24 11:44] LABS: INR 1.37 (0.9-1.15); Partial Thromboplastin Time 45.2 SEC (24.5-34.5); Prothrombin Time 14.1 sec (9.3-11.8)
[2023-02-24] MEDS: INSULIN LANTUS (GLARGINE) 1 /0.01ml (100units/ml) SC SCH (11:48)
[2023-02-24] MEDS ORDERED: HEPARIN DRIP/D5W 100UNITS/ML 250 ML IV SCH (12:15)
[2023-02-24] MEDS ORDERED: ENOX80IN SC (16:06)
[2023-02-24] MEDS ORDERED: WARFARIN SODIUM 2 MG TAB PO ONE (17:00)
[2023-02-24] MEDS: GABAPENTIN 100 MG CAP PO SCH (18:15)
== END 2023-02-24 18:52 | disposition home or self-care (01) | DRG 175 ==
LOC: UNDOADMIN 21:38 → DOU IN ICU 21:38 → TELE-CENTR 02-24 00:01
PROVIDERS: ADMIT Internal Medicine; ATTEND Internal Medicine
DX: I26.99 Other pulmonary embolism without acute cor pulmonale (principal); J96.01 Acute respiratory failure with hypoxia; N17.9 Acute kidney failure, unspecified; I82.411 Acute embolism and thrombosis of right femoral vein; I82.431 Acute embolism and thrombosis of right popliteal vein; E11.22 Type 2 diabetes mellitus with diabetic chronic kidney disease; E11.51 Type 2 diabetes mellitus with diabetic peripheral angiopathy without gangrene; F41.9 Anxiety disorder, unspecified; I12.9 Hypertensive chronic kidney disease with stage 1 through stage 4 chronic kidney disease, or unspecified chronic kidney disease; E66.9 Obesity, unspecified; N18.32 Chronic kidney disease, stage 3b; Z20.822 Contact with and (suspected) exposure to COVID-19; Z86.711 Personal history of pulmonary embolism; Z86.718 Personal history of other venous thrombosis and embolism; Z68.32 Body mass index [BMI] 32.0-32.9, adult; Z91.048 Other nonmedicinal substance allergy status; Z80.42 Family history of malignant neoplasm of prostate; Z82.0 Family history of epilepsy and other diseases of the nervous system; Z82.3 Family history of stroke; Z82.49 Family history of ischemic heart disease and other diseases of the circulatory system; Z83.3 Family history of diabetes mellitus; Z98.62 Peripheral vascular angioplasty status
CPT/HCPCS: 36415; 71045; 71250; 80053; 81001; 82962; 83880; 84484; 85025; 85610; 85730; 87081; 87426; 87804; 93306; 93970; C9113; G0378; J1815

== ENCOUNTER → 2023-05-07 | Outpatient (CLI) | payer OTHER ==
[~2023-05-07] MED LIST changes: +ALLO300T2 PO; +ATOR20TA PO; +CLOP75TA28 PO; +ENOX80IN SC; +FURO1TAB33 PO; +GABA-1308 PO; -INSLISPI SC; +INSU100I28 SC; +LEVEMIR SC; -LOSA25TA15 PO; +LOSA50TA46 PO; +MULT-775 OR; -WARF-114 PO; +WARF4TAB70 PO
[2023-05-07 09:16] LABS: Basophils # (auto) 0 10 ^3/uL (0-0.2); Basophils % (auto) 0.6 % (0.0-2.0); Eosinophils # (auto) 0.3 10 ^3/uL (0-0.8); Eosinophils % (auto) 4.7 % (0.0-7.0); Hematocrit 40.3 % (41.0-53.0); Hemoglobin 12.8 g/dL (13.5-17.5); Lymphocytes # (auto) 0.7 10 ^3/uL (0.4-5.4); Lymphocytes % (auto) 9.2 % (10.0-50.0); Mean Corpuscular Hgb Conc. 31.7 g/dL (32.0-36.0); Mean Corpuscular Volume 97.6 fL (80.0-100.0); Monocytes # (auto) 0.7 10 ^3/uL (0-1.3); Neutrophils # (auto) 5.6 10 ^3/uL (1.6-8.6); Neutrophils % (auto) 76.5 % (37.0-80.0); Nucleated Red Blood Cells % 0.1 %; Red Blood Cells 4.13 10^6/uL (4.5-5.90); White Blood Cell 7.3 10^3/uL (4.4-10.8)
[2023-05-07 09:20] LABS: Urine Bacteria NONE SEEN /hpf (None Seen); Urine Blood Negative /uL (Negative); Urine Clarity Clear (Clear); Urine Color Colorless (Yellow); Urine Hyaline Cast FEW /lpf (0 - 2); Urine Protein, UAD Negative (Negative); Urine Specific Gravity 1.018 (1.001-1.035); Urine Urobilinogen Normal (Negative); Urine WBC 1 /hpf (0 - 3)
[2023-05-07 10:30] LABS: Alanine Aminotransferase 21 U/L (7-40); Alkaline Phosphatase 166 U/L (46-116); Anion Gap 8 (5-15); Calcium 9.8 mg/dL (8.5-10.1); Carbon Dioxide 25 mmol/L (20-30); Chloride 111 mmol/L (98-107); Potassium 5.2 mmol/L (3.5-5.1); Sodium 144 mmol/L (136-145)
[2023-05-07 10:31] LABS: Aspartate Aminotransferase 14 U/L (13-40); BUN/Creatinine Ratio 21.3 (10.0-20.0); Blood Urea Nitrogen 35 mg/dL (9-23); Creatinine, Urine 75.6 mg/dL (30.0-125.0); Glucose 248 mg/dL (74-106); Triglycerides 126 mg/dL (< 150)
[2023-05-07 10:32] LABS: LDL Cholesterol 58 mg/dL (< 100)
[2023-05-07 10:33] LABS: Albumin 4.4 g/dL (3.2-4.8); Bilirubin, Total 0.4 mg/dL (0.2-1.0); Cholesterol 138 mg/dL (< 200); HDL Cholesterol 49 mg/dL (40-59); Total Protein 7.4 g/dL (5.7-8.2)
[2023-05-07 11:26] LABS: Free T4 (Free Thyroxine) 0.98 ng/dL (0.89-1.76)
== END | disposition home or self-care (01) ==
LOC: LAB 08:55
PROVIDERS: ATTEND Internal Medicine
DX: I10 Essential (primary) hypertension (principal); E11.9 Type 2 diabetes mellitus without complications; N40.0 Benign prostatic hyperplasia without lower urinary tract symptoms
CPT/HCPCS: 36415; 80053; 80061; 81001; 82043; 82570; 82607; 83036; 84439; 84443; 85025

== ENCOUNTER → 2023-09-18 | Outpatient (CLI) | payer OTHER ==
[~2023-09-18] MED LIST changes: -CILO50TA PO; +CILO50TA2 PO; +LOSA-534 PO; -LOSA50TA46 PO
== END | disposition home or self-care (01) ==
LOC: LAB 10:31
PROVIDERS: ATTEND Internal Medicine
DX: I10 Essential (primary) hypertension (principal)
CPT/HCPCS: 36415; 84132

== ENCOUNTER 2023-10-12 19:03 | Emergency (ER) | payer OTHER ==
[~2023-10-12] VITALS: Ht 177.8 cm; Wt 110.0 kg
[2023-10-12] MEDS: HYDROcodone-ACET 10/325MG TAB PO ONE (22:02)
[2023-10-12 22:03] VITALS: TEMP 98.3
[2023-10-12 22:29] VITALS: BP 148/78; PULSE 96; RESP 18; O2SAT 98
== END 2023-10-12 22:30 | disposition home or self-care (01) ==
LOC: EDBD 19:03 → ER 19:03 → EDUNIT# 19:03 → ER 22:30
DX: R07.81 Pleurodynia (principal); F41.9 Anxiety disorder, unspecified; F32.A Depression, unspecified; E11.9 Type 2 diabetes mellitus without complications; I10 Essential (primary) hypertension; Z91.09 Other allergy status, other than to drugs and biological substances; W19.XXXA Unspecified fall, initial encounter; Y93.89 Activity, other specified; Y92.89 Other specified places as the place of occurrence of the external cause; Y99.8 Other external cause status
CPT/HCPCS: 70450; 71045

== ENCOUNTER 2024-03-24 09:48 | Day surgery (SDC) | payer OTHER ==
[2024-03-20 14:28] LABS: Basophils # (auto) 0 10 ^3/uL (0-0.2); Basophils % (auto) 0.4 % (0.0-2.0); Eosinophils # (auto) 0.4 10 ^3/uL (0-0.8); Eosinophils % (auto) 5.4 % (0.0-7.0); Hematocrit 41.3 % (41.0-53.0); Hemoglobin 13.7 g/dL (13.5-17.5); Lymphocytes # (auto) 0.7 10 ^3/uL (0.4-5.4); Lymphocytes % (auto) 10.2 % (10.0-50.0); Mean Corpuscular Hemoglobin 32.7 pg (28.0-32.0); Mean Corpuscular Volume 99.2 fL (80.0-100.0); Monocytes # (auto) 0.6 10 ^3/uL (0-1.3); Monocytes % (auto) 8.6 % (0.0-12.0); Neutrophils # (auto) 5.2 10 ^3/uL (1.6-8.6); Neutrophils % (auto) 75.4 % (37.0-80.0); Nucleated Red Blood Cells % 0.1 %; Platelet Count (auto) 186 10^3/uL (140-450); Red Blood Cells 4.17 10^6/uL (4.5-5.90); Red Cell Distribution Width 16.7 % (11.8-14.3)
[2024-03-20 14:43] LABS: INR 2.92 (0.9-1.15); Partial Thromboplastin Time 39.3 SEC (24.5-34.5); Prothrombin Time 28.6 sec (9.3-11.8)
[2024-03-20 14:46] LABS: Alanine Aminotransferase 29 U/L (7-40); Alkaline Phosphatase 119 U/L (46-116); Calcium 9.8 mg/dL (8.7-10.4); Carbon Dioxide 25 mmol/L (20-31); Chloride 111 mmol/L (98-107); Glucose 197 mg/dL (74-106); Potassium 4.3 mmol/L (3.5-5.1); Sodium 145 mmol/L (136-145)
[2024-03-20 14:47] LABS: Albumin 4.3 g/dL (3.2-4.8); Anion Gap 9 (5-15); Aspartate Aminotransferase 14 U/L (13-40); BUN/Creatinine Ratio 22.2 (10.0-20.0); Bilirubin, Total 0.4 mg/dL (0.2-1.0); Blood Urea Nitrogen 38 mg/dL (9-23); Total Protein 7.1 g/dL (5.7-8.2)
[~2024-03-24] VITALS: Ht 177.8 cm; Wt 102.1 kg
[~2024-03-24 09:48] MED LIST changes: +AML5T PO; -ASCO500T11 PO; -ATOR20TA PO; +ATOR40TA52 PO; -CALC-440 PO; -CILO50TA2 PO; -CLON0.5T3 PO; -CLOP75TA28 PO; -ENOX80IN SC; -FIBETAB PO; -GABA-1308 PO; -GLIP10TA9 PO; -INSU100I28 SC; +INSU100I47 SC; -LACTCAP35 OR; -METF-370 PO; -MULT-223 PO; -SITA100T7 PO; -ZALE10CA44 PO; +[UNRECOGNIZED DRUG - CODE] IV
[2024-03-24] MEDS ORDERED: diphenhdrAMINE HCL 50 MG/1 ML VL ONE (09:52)
[2024-03-24] MEDS ORDERED: MIDAZOLAM HCL 2MG/2ML 2ml VIAL (1mg/ml) ONE (09:52)
[2024-03-24] MEDS: fentaNYL CITRATE 100 MCG/2 ML VL ONE (13:40)
[2024-03-24] MEDS: MIDAZOLAM HCL 5 MG/ML-1ML VIAL ONE (13:40)
[2024-03-24 14:07] VITALS: TEMP 97; O2SAT 100
--- NOTE | 2024-03-24 14:09 | DVHNC2 ---
Procedure - 03/24/2024 PROCEDURE PERFORMED BY: Ella Beasley MD REFERRING PROVIDER: Dr Mariana CASAS PROCEDURE PERFORMED: 1. COLONOSCOPY WITH COLD SNARE POLYPECTOMY WITH MODERATE SEDATION 2. COLONOSCOPY WITH BIOPSY WITH MODERATE SEDATION 3. COLONOSCOPY WITH ENDOCLIP PLACEMENT WITH MODERATE SEDATION PRE-PROCEDURE DIAGNOSIS: 1 Colon cancer screening 2. History of colon polyp, tubular adenoma POSTPROCEDURE DIAGNOSIS: 1. Three small colon polyps, with cold snare and biopsy forceps from the cecum. 2. Diverticulosis left colon 3. Fair preparation 4. Internal and external hemorrhoids 5. 1x1.25 cm transverse colon polyp not removed MEDICATIONS USED: 3 mg IV Versed, 50mcg of Fentanyl IV DETAILS OF THE PROCEDURE: Informed consent was obtained after risks benefits and alternatives were discussed at length with patient patient gave consent to the procedure as well as medication used for sedation. The patient was placed in left lateral decubitus position. Digital rectal exam showed internal hemorrhoids. An Olympus variable torsion 180 adult colonoscope was inserted in to the rectum and advanced to the cecum. The cecum was identified by the ileocecal valve and the appendiceal orifice. The scope was then withdrawn. The prep was fair with moderate amounts of stool. The patient had three colon polyps in the cecum two removed with biopsy forceps and one removed with cold snare with two Endoclips placed for oozing of blood. The patient continued to have oozing of blood even from the biopsy specimens although he has been off of anticoagulants for a number of days. The patient had a 1.25 cm transverse colon polyp that I did not remove due to the oozing of blood that the patient had from the other polypectomy sites, as well as the fact that patient had a fair preparation. Small or flat lesions could have been missed. The patient had mild left-sided diverticulosis. Retroflexion showed internal hemorrhoids. More than six minutes withdrawal time was noted. The patient tolerated the procedure well. IMPRESSION: 1. Mild left-sided diverticulosis 2. Three colon polyps in the cecum removed with biopsy forceps and cold snare. 3. Internal and external hemorrhoids 4. One transverse colon polyp measuring 1.25 cm not removed due to the risk of bleeding and since the preparation was fair and the patient would need repeat colonoscopy RECOMMENDATIONS: 1. Follow up with procedure results and pathology in GI clinic 2. Repeat colonoscopy within one year, off of anticoagulation, and with a two day preparation 3. High-fiber diet 4. Follow up with primary care physician 5. Restart anticoagulation in 2 days I WOULD LIKE TO THANK DR. Peña FOR THIS REFERRAL ELLA BEASLEY MD Mar 24, 2024 14:08
[2024-03-24 14:37] VITALS: BP 112/66; PULSE 68; RESP 13; O2SAT 96
== END 2024-03-24 14:53 | disposition home or self-care (01) ==
LOC: GI 09:48
PROVIDERS: ATTEND Specialist
DX: Z12.11 Encounter for screening for malignant neoplasm of colon (principal); D12.0 Benign neoplasm of cecum; K57.30 Diverticulosis of large intestine without perforation or abscess without bleeding; K64.4 Residual hemorrhoidal skin tags; K64.8 Other hemorrhoids; I10 Essential (primary) hypertension; E11.40 Type 2 diabetes mellitus with diabetic neuropathy, unspecified; F41.9 Anxiety disorder, unspecified; F32.A Depression, unspecified; Z98.890 Other specified postprocedural states; Z91.09 Other allergy status, other than to drugs and biological substances; Z82.49 Family history of ischemic heart disease and other diseases of the circulatory system; Z83.3 Family history of diabetes mellitus; Z87.891 Personal history of nicotine dependence; Z79.4 Long term (current) use of insulin
CPT/HCPCS: 36415; 45380; 45385; 80053; 82962; 85025; 85610; 85730; 88305; J2250; J3010; 99152; 99153

== ENCOUNTER 2024-07-05 08:13 | Day surgery (SDC) | payer OTHER ==
[2024-07-02 14:36] LABS: Basophils # (auto) 0 10 ^3/uL (0-0.2); Basophils % (auto) 0.5 % (0.0-2.0); Eosinophils # (auto) 0.3 10 ^3/uL (0-0.8); Eosinophils % (auto) 4.5 % (0.0-7.0); Hematocrit 40.3 % (41.0-53.0); Hemoglobin 13.1 g/dL (13.5-17.5); Lymphocytes # (auto) 0.8 10 ^3/uL (0.4-5.4); Lymphocytes % (auto) 13.7 % (10.0-50.0); Mean Corpuscular Hemoglobin 31.9 pg (28.0-32.0); Mean Corpuscular Hgb Conc. 32.6 g/dL (32.0-36.0); Monocytes # (auto) 0.6 10 ^3/uL (0-1.3); Monocytes % (auto) 9.6 % (0.0-12.0); Neutrophils # (auto) 4.3 10 ^3/uL (1.6-8.6); Neutrophils % (auto) 71.7 % (37.0-80.0); Nucleated Red Blood Cells % 0.1 %; Platelet Count (auto) 201 10^3/uL (140-450); Red Blood Cells 4.11 10^6/uL (4.5-5.90); Red Cell Distribution Width 15.8 % (11.8-14.3); White Blood Cell 6.1 10^3/uL (4.4-10.8)
[2024-07-02 14:52] LABS: INR 1.55 (0.9-1.15); Prothrombin Time 15.7 sec (9.3-11.8)
[2024-07-02 15:08] LABS: Alanine Aminotransferase 24 U/L (7-40); Albumin 4.5 g/dL (3.2-4.8); Alkaline Phosphatase 101 U/L (46-116); Anion Gap 7 (5-15); Aspartate Aminotransferase 16 U/L (13-40); BUN/Creatinine Ratio 21.9 (10.0-20.0); Bilirubin, Total 0.4 mg/dL (0.2-1.0); Blood Urea Nitrogen 37 mg/dL (9-23); Calcium 9.9 mg/dL (8.7-10.4); Carbon Dioxide 27 mmol/L (20-31); Chloride 110 mmol/L (98-107); Glucose 190 mg/dL (74-106); Potassium 4.6 mmol/L (3.5-5.1); Sodium 144 mmol/L (136-145); Total Protein 7.2 g/dL (5.7-8.2)
[~2024-07-05] VITALS: Ht 177.8 cm; Wt 104.3 kg
[~2024-07-05 08:13] MED LIST changes: +CHOL20007 PO; +CILO100T3 PO; +ENO30SY; +INSLANTI SC; -LEVEMIR SC; +TAMS0.4C39 PO; +TRAM50TA2 PO; -[UNRECOGNIZED DRUG - CODE] IV
[2024-07-05] MEDS: fentaNYL CITRATE 100 MCG/2 ML VL ONE (10:15)
[2024-07-05] MEDS: MIDAZOLAM HCL 2MG/2ML 2ml VIAL (1mg/ml) ONE (10:15)
[2024-07-05] MEDS: diphenhdrAMINE HCL 50 MG/1 ML VL ONE (10:26)
--- NOTE | 2024-07-05 10:57 | DVHNC2 ---
Procedure - DATE OF PROCEDURE: July 05, 2024 SURGEON: ELLA BEASLEY MD REFERRING PROVIDER: Malachi Estes MD PROCEDURE PERFORMED: 1. Esophagogastroduodenoscopy with moderate sedation 2. Esophagogastroduodenoscopy with biopsy 3. Colonoscopy with moderate sedation 4. Colonoscopy with polypectomy with cold biopsy PRE-PROCEDURE DIAGNOSIS: 1. History of colon polyps 2. Abdominal pain 3. Dysphagia 4. Anemia 5. History of anticoagulation POSTPROCEDURE DIAGNOSIS: 1. Numerous duodenal ulcers and erosions 2. Severe gastritis versus gastropathy antrum and body 3. Small gastric polyps 4. Internal and external hemorrhoids 5. Small sigmoid polyps likely hyperplastic INDICATIONS FOR PROCEDURE: The patient is a 48-year-old female with GERD refractory to treatment, constipation and hematochezia who presents for outpatient endoscopy and colonoscopy. MEDICATIONS USED: 5 mg of Versed 75 mcg of fentanyl in 25 mg of Benadryl IV DETAILS OF THE PROCEDURE: Informed consent was obtained after risks, benefits, and alternatives, were discussed at length with the patient. The patient gave consent to the procedure as well as the medication used for sedation. The patient was placed in the left lateral decubitus position. An Olympus endoscope was inserted into the oropharynx and advanced into the esophagus, then into the stomach, then into the duodenal bulb and duodenum. The scope was then withdrawn. The patient had numerous duodenal erosions and ulcers in the bulb and 2nd portion. The scope was then withdrawn. The patient had severe gastritis versus gastropathy, biopsies were taken. Retroflexion showed gastric polyps. One was removed. There was no evidence of a hiatal hernia. The scope was then withdrawn. The esophagus was normal in appearance with a Z-line at 43 cm. The patient tolerated the procedure well. The patient remained in the left lateral decubitus position. Digital rectal exam showed external hemorrhoids. An Olympus variable torsion adult colonoscope was inserted into the rectum and advanced to the cecum. The cecum was identified by the ileocecal valve and the appendiceal orifice. The scope was then withdrawn. The prep was fair with liquid and semi-solid stool throughout. Small or flat lesions could have been missed. The patient had a 2 sessile polyps in the transverse colon in 1 in the ascending colon measuring between 1 and 1.25 cm. They were removed completely with cold snare polypectomy and there was good hemostasis. There were no masses, strictures, or arteriovenous malformation seen. The patient had mild left-sided diverticulosis. More than six minutes withdrawal time was noted. Retroflexion showed no abnormalities. The patient tolerated the procedure well [facility] PREP SCORE: 6 COLONOSCOPY START TIME: 1035 CECUM TIME: 1041 COLONOSCOPY END TIME: 1050 IMPRESSION: 1. Small external hemorrhoids 2. Three colon polyps removed with cold snare polypectomy 3. Normal esophagus 4. Severe erosive gastritis versus gastropathy, biopsies taken 5. Several small gastric polyps one removed 6. Numerous erosions and ulcers in the duodenal bulb and duodenum RECOMMENDATIONS: 1. Patient should be on a proton pump inhibitor twice daily 30 minutes before breakfast and dinner 2. Follow up with pathology of the stomach as well as a colon 3. Caution with aspirin, NSAIDs and anticoagulants 4. Repeat colonoscopy in one year with two day preparation unless otherwise indicated by comorbidities or pathology. Patient had a fair preparation. 5. Anti-reflux precautions 6. High-fiber diet 7. Restart anticoagulation in three days I WOULD LIKE TO THANK DR. ESTES FOR THIS REFERRAL ELLA BEASLEY MD Jul 05, 2024 10:57
[2024-07-05 11:25] VITALS: BP 138/64; PULSE 70; RESP 12; O2SAT 95
== END 2024-07-05 11:30 | disposition home or self-care (01) ==
LOC: GI 08:13
PROVIDERS: ATTEND Specialist
DX: D64.9 Anemia, unspecified (principal); R10.9 Unspecified abdominal pain; R13.10 Dysphagia, unspecified; K26.9 Duodenal ulcer, unspecified as acute or chronic, without hemorrhage or perforation; K31.7 Polyp of stomach and duodenum; K64.4 Residual hemorrhoidal skin tags; K57.30 Diverticulosis of large intestine without perforation or abscess without bleeding; K64.8 Other hemorrhoids; D12.2 Benign neoplasm of ascending colon; D12.3 Benign neoplasm of transverse colon; K29.50 Unspecified chronic gastritis without bleeding; I10 Essential (primary) hypertension; E11.40 Type 2 diabetes mellitus with diabetic neuropathy, unspecified; Z79.899 Other long term (current) drug therapy; Z98.890 Other specified postprocedural states
CPT/HCPCS: 36415; 43239; 45385; 80053; 82962; 85025; 85610; 85730; 88305; 88312; 88342; J1200; J2250; J3010; 99152; 99153

== ENCOUNTER → 2024-07-21 | Outpatient (CLI) | payer OTHER ==
[2024-07-21 09:38] LABS: Urine Bacteria None Seen /hpf (None Seen)
[2024-07-21 10:00] LABS: Basophils # (auto) 0 10 ^3/uL (0-0.2); Basophils % (auto) 0.7 % (0.0-2.0); Eosinophils # (auto) 0.4 10 ^3/uL (0-0.8); Eosinophils % (auto) 5.7 % (0.0-7.0); Hematocrit 40.8 % (41.0-53.0); Hemoglobin 13.3 g/dL (13.5-17.5); Lymphocytes # (auto) 0.9 10 ^3/uL (0.4-5.4); Lymphocytes % (auto) 14.7 % (10.0-50.0); Mean Corpuscular Hemoglobin 31.7 pg (28.0-32.0); Mean Corpuscular Hgb Conc. 32.5 g/dL (32.0-36.0); Mean Corpuscular Volume 97.5 fL (80.0-100.0); Monocytes # (auto) 0.6 10 ^3/uL (0-1.3); Monocytes % (auto) 8.8 % (0.0-12.0); Neutrophils # (auto) 4.4 10 ^3/uL (1.6-8.6); Neutrophils % (auto) 70.1 % (37.0-80.0); Nucleated Red Blood Cells % 0.1 %; Platelet Count (auto) 258 10^3/uL (140-450); Red Blood Cells 4.18 10^6/uL (4.5-5.90); Red Cell Distribution Width 15.8 % (11.8-14.3); White Blood Cell 6.3 10^3/uL (4.4-10.8)
[2024-07-21 10:10] LABS: Alanine Aminotransferase 21 U/L (7-40); Albumin 4.6 g/dL (3.2-4.8); Alkaline Phosphatase 95 U/L (46-116); Anion Gap 10 (5-15); BUN/Creatinine Ratio 25.7 (10.0-20.0); Calcium 9.8 mg/dL (8.7-10.4); Carbon Dioxide 26 mmol/L (20-31); LDL Cholesterol 53 mg/dL (< 100); Potassium 4.3 mmol/L (3.5-5.1); Sodium 145 mmol/L (136-145); Total Protein 7.4 g/dL (5.7-8.2); Triglycerides 119 mg/dL (< 150)
[2024-07-21 10:11] LABS: Bilirubin, Total 0.3 mg/dL (0.2-1.0); Cholesterol 134 mg/dL (< 200); HDL Cholesterol 49 mg/dL (40-59)
[2024-07-21 10:16] LABS: Urine Blood Negative /uL (Negative); Urine Clarity Clear (Clear); Urine Color Light-Yellow (Yellow); Urine Protein, UAD Negative (Negative); Urine Specific Gravity 1.019 (1.001-1.035); Urine Squamous Epithelial Cell None Seen /hpf (<5); Urine Urobilinogen Normal (Negative); Urine WBC 4 /HPF (0-3)
[2024-07-21 10:24] LABS: Aspartate Aminotransferase 11 U/L (13-40); Blood Urea Nitrogen 43 mg/dL (9-23); Chloride 109 mmol/L (98-107); Glucose 127 mg/dL (74-106)
[2024-07-21 10:33] LABS: Erythrocyte Sedimentation Rate 36 mm/hr (0-20)
[2024-07-21 10:35] LABS: Uric Acid 4.4 mg/dL (3.7-9.2)
[2024-07-21 10:57] LABS: Free T4 (Free Thyroxine) 1.15 ng/dL (0.89-1.76)
== END | disposition home or self-care (01) ==
LOC: LAB 09:00
PROVIDERS: ATTEND Internal Medicine
DX: I10 Essential (primary) hypertension (principal); E11.9 Type 2 diabetes mellitus without complications; Z79.899 Other long term (current) drug therapy
CPT/HCPCS: 36415; 80053; 80061; 81001; 82043; 82607; 84153; 84439; 84443; 84550; 85025; 85652